=== PATIENT | male | born 1980 | race Caucasian/White ===

== ENCOUNTER 2017-01-24 10:37 | Inpatient (IN) | payer SELFPAY ==
[2017-01-24 13:04] VITALS: BP 120/64; PULSE 104; RESP 22; TEMP 98.3; O2SAT 97
[2017-01-24 18:33] VITALS: BP 120/60; PULSE 73; RESP 17; TEMP 98.6; O2SAT 98
[2017-01-24] MEDS: NICOTINE 21 MG/24 HR PATCH T-DERMAL SCH (19:15)
[2017-01-24] MEDS: REMOVE OLD NICODERM (NICOTINE) PATCH T-DERMAL SCH (21:00)
[2017-01-25] MEDS ORDERED: MAGNESIUM HYDROXIDE SUSP 30 ML CUP PO PRN (01:15)
[2017-01-25] MEDS ORDERED: diphenhydrAMINE HCL 50 MG/ML VIAL - HS PRN IM (01:15)
[2017-01-25] MEDS ORDERED: ALUMINUM/MAGNESIUM/SIMETH 30 ML CUP PO PRN (01:15)
[2017-01-25] MEDS ORDERED: ACETAMINOPHEN 325 MG TAB PO PRN (01:15)
[2017-01-25] MEDS ORDERED: hydrOXYzine HCL 50 MG TAB PO PRN (01:15)
[2017-01-25] MEDS ORDERED: diphenhydrAMINE HCL 50 MG CAP - HS PRN PO (01:15)
[2017-01-25 06:14] VITALS: BP 110/61; PULSE 58; RESP 18; TEMP 98.7; O2SAT 97
[2017-01-25 07:21] LABS: ANION GAP 7 MEQ/L (5-15); BICARBONATE 28.2 MEQ/L (21.0-32.0); BLOOD UREA NITROGEN 15 MG/DL (7-18); CHLORIDE 106 MEQ/L (98-107); GLOMERULAR FILTRATION RATE 79 ML/MIN (>89); POTASSIUM 3.7 MEQ/L (3.5-5.1); SODIUM (NA) 141 MEQ/L (136-145)
[2017-01-25 07:23] LABS: HDL CHOLESTEROL 86.5 MG/DL (40.0-60.0); LDL CHOLESTEROL 50 MG/DL (0-99)
[2017-01-25] MEDS: NICOTINE 21 MG/24 HR PATCH T-DERMAL SCH (09:00)
--- NOTE | 2017-01-25 13:22 | HHI.HP ---
Provisional Diagnosis Admission Date Jan 24, 2017 at 12:08 [place]. Adjustment disorder with depressed mood Certification of Person's Competence To Provide Express and Informed Consent I have personally examined Richard Velazquez , a person being served at [facility], [place] on, Jan 25, 2017 13:18. Express and informed consent means consent voluntarily given in writing, by a competent person, after sufficient explanation and disclosure of the subject matter involved to enable the person to make a knowing and willful decision without any element of force, fraud, deceit, duress, or other form of constraint or coercion. This person is 18 years of age or older, is not now known to be incompetent to consent to treatment with a guardian advocate, and does not have a health care surrogate or proxy currently making medical treatment decisions. I have found this person to be one of the following: [X] Competent to provide express and informed consent, as defined above, for voluntary admission to this facility and is competent to provide express and informed consent for treatment. He/she has the consistent capacity to make well reasoned, willful, and knowing decisions concerning his or her medical or mental health treatment. The person fully and consistently understands the purpose of the admission for examination/placement and is fully capable of personally exercising all rights [place] Incompetent to provide express and informed consent to voluntary admission, and this is incompetent to provide express and informed consent to treatment. The person must be transferred to involuntary status and a petition for a guardian advocate filed with the Circuit Court. [] Refusing to provide express and informed consent to voluntary admission but is competent to provide express and informed consent for treatment. The person must be discharged or transferred to involuntary status. Form shall be completed within 24 hours of a person's arrival at the receiving facility and filed in the clinical record of each person: 1. Admitted on a voluntary basis 2. Permitted to provide express and informed consent to his/her own treatment 3. Allowed to transfer from involuntary to voluntary status 4. Prior to permitting a person to consent to his or her own treatment after having been previously found incompetent to consent to treatment. History of Present Illness Capacity: Has Capacity HPI Patient is admitted voluntarily for reports of depression without suicidal or homicidal ideation, plan or intent. No psychosis. Review of Systems Except as stated in HPI: all other systems reviewed are Neg Past Psych History Psychological trauma history Denies Violence risk - others (6 mos) Minimal Violence risk - self (6 mos) Minimal Substance Abuse History Drugs/Alcohol past 12 months History of cocaine abuse Past Family Social History Current Medications Medications (Trade) Dose Ordered Sig/Stew Route Start Time Stop Time Status Last Admin (Habitrol 21 Mg Patch.24 Hr) 1 patch DAILY T-DERMAL 01/24/17 19:15 Miscellaneous Information 1 HS T-DERMAL 01/24/17 21:00 (Atarax) 50 mg Q6H PRN PO 01/25/17 01:15 (Benadryl) 50 mg HS PRN PO 01/25/17 01:15 (Benadryl Inj) 50 mg HS PRN IM 01/25/17 01:15 (Tylenol) 650 mg Q4H PRN PO 01/25/17 01:15 (Milk Of Magnesia Liq) 30 ml DAILY PRN PO 01/25/17 01:15 (Mag-Al Plus Susp Liq) 30 ml Q6H PRN PO 01/25/17 01:15 Family History Positive for depression Social History Looking for employment. Has family support. Describes history of cocaine abuse. Patient's Strengths (min. 2) Verbal and resilient. Physical Exam GENERAL: SKIN: Warm and dry. HEAD: Normocephalic. EYES: No scleral icterus. No injection or drainage. NECK: Supple, trachea midline. No JVD or lymphadenopathy. CARDIOVASCULAR: Regular rate and rhythm without murmurs, gallops, or rubs. RESPIRATORY: Breath sounds equal bilaterally. No accessory muscle use. GASTROINTESTINAL: Abdomen soft, non-tender, nondistended. MUSCULOSKELETAL: No cyanosis, or edema. BACK: Nontender without obvious deformity. No CVA tenderness. Vital Signs Vital Signs Date Time Temp Pulse Resp B/P Pulse Ox O2 Delivery O2 Flow Rate FiO2 01/25/17 06:14 98.7 58 18 110/61 97 Mental Status Examination Speech: Unremarkable Orientation: x3 Memory: Unremarkable Thought Process: Organized, Goal Directed Thought Content: Unremarkable Hallucination Type: None Attention and Concentration: Good Suicidal Ideation: No Previous Suicide Attempts: No Homicidal Ideation: No Previous Homicide Attempts: No Insight: Fair Judgment: WNL Affect: Good Mood: Appropriate Motor Activity: Normal gait Assessment & Plan Problem List: (1) Adjustment disorder with depressed mood ICD Code: F43.21 Assessment & Plan Estimated LOS: days will start patient on Prozac this evening and discharge him tomorrow. Naeem Hernandez MD Jan 25, 2017 13:22
[2017-01-25 18:51] VITALS: BP 114/55; PULSE 69; RESP 19; TEMP 98.1; O2SAT 100
[2017-01-25 19:24] LABS: HEMOGLOBIN F 0.9 %; HEMOGLOBIN LA1C 1.7 %; HEMOGLOBIN P3 3.4 %
[2017-01-25] MEDS ORDERED: FLUoxetine HCL 10 MG CAP PO SCH (21:00)
[2017-01-25] MEDS: REMOVE OLD NICODERM (NICOTINE) PATCH T-DERMAL SCH (21:00)
[2017-01-26 05:58] VITALS: BP 116/63; PULSE 59; RESP 17; TEMP 97.6; O2SAT 98
[2017-01-26] MEDS: NICOTINE 21 MG/24 HR PATCH T-DERMAL SCH (08:58)
--- NOTE | 2017-01-26 12:26 | HHI.DS ---
Psychiatry Discharge Summary Inpatient Psychiatric care?: Yes Advance Directive: No Reason Not Provided: Due to Patient Condition Mental Health AdvanceDirective: No Health Care Proxy: No Admission Admission Date Jan 24, 2017 at 12:08 Admission Diagnosis: (1) Adjustment disorder with depressed mood ICD Code: F43.21 Brief History Patient is admitted voluntarily for reports of depression without suicidal or homicidal ideation, plan or intent. No psychosis. Tobacco Use In Past 30 Days: 5 or More Cigarettes/Day Alcohol Use: 2-4 Times Per Month Hospital Course Patient compliant and pleasant throughout hospital course. Participated in milieu activities. Results Blood Pressure 116 / 63 Vital Signs Date Time Temp Pulse Resp B/P Pulse Ox O2 Delivery O2 Flow Rate FiO2 01/26/17 05:58 97.6 59 17 116/63 98 Laboratory Tests Test 01/25/17 05:59 Estimat Glomerular Filtration 79 ML/MIN (>89) Rate HDL Cholesterol 86.5 MG/DL (40.0-60.0) Laboratory Results Test 01/25/17 05:59 Hemoglobin A1c 5.6 % (4.3-6.0) Triglycerides Level 87 MG/DL (42-150) Cholesterol Level 154 MG/DL (120-200) LDL Cholesterol 50 MG/DL (0-99) HDL Cholesterol 86.5 MG/DL (40.0-60.0) Summary of Procedures None Pending results at discharge: No Medications # of Antipsychotic meds at D/C: 0 Approp Antipsych med options 1 - Minimum of three failed multiple trials of monotherapy. 2 - Documented plan to taper to monotherapy due to previous use of multiple meds OR cross-taper in progress at D/C. 3 - Documentation of augmentation of Clozapine. 4 - Justification other than those listed in allowable values 1-3, document here : Discharge Discharge Date: Jan 26, 2017 Discharge Diagnosis: (1) Adjustment disorder with depressed mood Diagnosis: Principal ICD Code: F43.21 Mental Status Exam at Disch No suicidal or homicidal ideation, plan or intent. No psychotic symptoms. Cognition intact. Pt Condition on Discharge: Stable Discharge Disposition: Discharge Home Discharge Instructions Diet Instructions: As Tolerated, No Restrictions Activities you can perform: Regular-No Restrictions Discharge Time <= 30 minutes Discharge/Advance Care Plan Health Problems: (1) Adjustment disorder with depressed mood Goals to promote your health * To prevent worsening of your condition and complications * To maintain your health at the optimal level Directions to meet your goals Take your medications as prescribed Follow your dietary instruction Follow activity as directed Keep your appointments as scheduled Take your immunizations and boosters as scheduled If your symptoms worsen call your PCP, if no PCP go to Urgent Care Center or Emergency Room For 14/02 questions related to your inpatient stay or results of tests pending at discharge, please contact Dr. Naeem Hernandez at Smoking is Dangerous to Your Health. Avoid second hand smoking Naeem Hernandez MD Jan 26, 2017 12:26
[2017-01-26] MEDS ORDERED: PROZ20CA11 PO (12:27)
== END 2017-01-26 14:20 | disposition home or self-care (01) | DRG 881 ==
LOC: H270 12:08
PROVIDERS: ADMIT Psychiatry & Neurology Psychiatry; ATTEND Psychiatry & Neurology Psychiatry
DX: F43.21 Adjustment disorder with depressed mood (principal); F17.210 Nicotine dependence, cigarettes, uncomplicated
CPT/HCPCS: 80048; 80061; 83036